=== PATIENT | female | born 1945 | race American Indian/Alaskan Native ===

== ENCOUNTER 2019-01-16 08:35 | Outpatient (CLI) | payer OTHER | END 2019-01-16 08:37 | disposition home or self-care (01) | LOC: SONOGRAMA 08:35 → MAMO-SONO 08:45 | DX: R10.10 Upper abdominal pain, unspecified (principal); N28.1 Cyst of kidney, acquired; N60.11 Diffuse cystic mastopathy of right breast; N60.12 Diffuse cystic mastopathy of left breast; Z12.11 Encounter for screening for malignant neoplasm of colon ==

== ENCOUNTER 2022-11-08 07:20 | Outpatient (CLI) | payer OTHER | END 2022-11-08 07:32 | disposition home or self-care (01) | LOC: SONOGRAMA 07:20 | PROVIDERS: ATTEND Family Medicine | DX: R10.2 Pelvic and perineal pain (principal); N60.11 Diffuse cystic mastopathy of right breast; N60.12 Diffuse cystic mastopathy of left breast; K58.2 Mixed irritable bowel syndrome ==

== ENCOUNTER 2022-11-27 19:35 | Emergency (ER) | payer OTHER ==
[~2022-11-27] VITALS: Ht 162.6 cm; Wt 49.0 kg
== END 2022-11-27 22:12 | disposition home or self-care (01) ==
LOC: ER 19:35
DX: M25.571 Pain in right ankle and joints of right foot (principal); W01.0XXA Fall on same level from slipping, tripping and stumbling without subsequent striking against object, initial encounter; Y93.9 Activity, unspecified; Y92.019 Unspecified place in single-family (private) house as the place of occurrence of the external cause

== ENCOUNTER 2023-11-03 08:39 | Outpatient (CLI) | payer OTHER | END 2023-11-03 09:21 | disposition home or self-care (01) | LOC: SONOGRAMA 08:39 | PROVIDERS: ATTEND Family Medicine | DX: K58.0 Irritable bowel syndrome with diarrhea (principal); N60.11 Diffuse cystic mastopathy of right breast; N60.12 Diffuse cystic mastopathy of left breast; D25.9 Leiomyoma of uterus, unspecified ==

== ENCOUNTER 2024-12-16 05:30 | Day surgery (SDC) | payer OTHER ==
[2024-12-11 09:54] VITALS: BP 170/80
[2024-12-11 09:54] LABS: PH,URINE 5.5 (5.0-8.0); URINE APPEARANCE Clear; URINE BILIRRUBIN Negative (NEGATIVE); URINE BLOOD Negative; URINE COLOR Yellow; URINE GLUCOSE Negative (NEGATIVE); URINE KETONE 15 (NEGATIVE); URINE LEUKOCYTE Moderate; URINE NITRATE Negative; URINE PROTEIN Negative (NEGATIVE); URINE UROBILINOGEN 0.2 E.U./dl
[2024-12-11 09:58] LABS: URINE BACTERIA 57.5 uL (0.0-1933); URINE CAST 0.73 uL (0.0-1.40); URINE EPITHELIAL CELLS 9.8 uL (0.0-38.8); URINE RBC 1.4 uL (0.0-20.8); URINE WBC 278.5 uL (0.0-23.2)
[2024-12-11 10:13] LABS: INR 1.06; PARTIAL THROMBOPLASTIN TIME 26.4 SECONDS (22.0-34.0); PROTHROMBIN TIME 11.5 SECONDS (9.0-11.5)
[2024-12-11 11:01] LABS: BILIRUBIN TOTAL 0.58 mg/dL (0.3-1.2); CALCIUM 9.2 mg/dL (8.5-10.1); CREATININE SERUM 0.93 mg/dL (0.55-1.02); GFR 57.86; GLOBULINA 3.5 G/DL (2.4-3.5); POTASSIUM 4.27 mEq/L (3.5-5.1); TOTAL PROTEIN 7.5 gm/dL (6.4-8.2)
[2024-12-11 12:13] LABS: HEMATOCRIT 40.3 % (36.0-45.00); HEMOGLOBIN 13.2 g/dL (12.0-15.00); MEAN CELL VOLUME 92.9 fL (80.00-100.00); MEAN CORPUSCULAR HEMOGLOBIN 30.5 pg (27.00-32.0); MEAN CORPUSCULAR HGB CONC 32.8 g/dl (32.0-36.0); PLATELET COUNT 260 K/uL (150-450); RED BLOOD COUNT 4.34 M/uL (4.00-6.00); RED CELL DISTRIBUTION WIDTH 13.9 % (11.5-14.5)
[~2024-12-16] VITALS: Ht 162.6 cm; Wt 49.0 kg
[2024-12-16] MEDS ORDERED: HEMOSTATIC MATRIX 1 KIT KIT TOP ONE (08:00)
[2024-12-16] MEDS ORDERED: CEFTRIAXONE SODIUM 2,000 MG VIAL IV ONE (08:00)
[2024-12-16] MEDS ORDERED: POVIDONE-IODINE 118 ML BOTT TOP ONE (08:00)
[2024-12-16] MEDS ORDERED: BUPIVACAINE HCL 30 ML VIAL IJ ONE (08:00)
[2024-12-16] MEDS ORDERED: METRONIDAZOLE/SODIUM CHLORIDE 500 MG/100 ML PIGGYBACK IV ONE (08:00)
[2024-12-16] MEDS ORDERED: DIBUCAINE 30 GM TUBE RECTAL ONE (08:00)
[2024-12-16] MEDS ORDERED: LIDOCAINE HCL 1%/EPINEPHRINE 20ML VIAL IJ ONE (08:00)
[2024-12-16] MEDS ORDERED: NEURONTIN300 MG PO (09:19)
[2024-12-16] MEDS ORDERED: CELECOXIB200 MG PO (09:19)
[2024-12-16] MEDS ORDERED: INTESTINEX680 M1 PO (09:20)
[2024-12-16] MEDS ORDERED: TRAM1TAB98 PO (09:20)
== END 2024-12-16 15:20 | disposition home or self-care (01) ==
LOC: CIR.AMB 05:30
PROVIDERS: ATTEND Surgery
DX: C21.8 Malignant neoplasm of overlapping sites of rectum, anus and anal canal (principal); D12.9 Benign neoplasm of anus and anal canal; K58.0 Irritable bowel syndrome with diarrhea